=== PATIENT | male | born 2000 | race Caucasian/White ===

== ENCOUNTER 2018-12-23 17:43 | Emergency (ER) | payer OTHER ==
[2018-12-23] MEDS ORDERED: HYDROcodone/APAP 5-325MG 1 EACH TAB PO STA (18:18)
--- NOTE | 2018-12-23 18:30 | XR ---
EXAMINATION TYPE: XR hand complete RT DATE OF EXAM: 12/23/2018 COMPARISON: NONE HISTORY: Pain TECHNIQUE: 3 views FINDINGS: There is a transverse fracture across the base of the first metacarpal. There is slight imp action. There is no dislocation. Fracture displacement is 4 mm. IMPRESSION: Impacted transverse fracture of the base of the first metacarpal.
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
[2018-12-23 20:30] VITALS: BP 126/72; PULSE 84; RESP 18; TEMP 98.4
== END 2018-12-23 20:12 | disposition home or self-care (01) ==
LOC: EC 17:43
DX: S62.231A Other displaced fracture of base of first metacarpal bone, right hand, initial encounter for closed fracture (principal); V99.XXXA Unspecified transport accident, initial encounter
CPT/HCPCS: 29125; 99283

== ENCOUNTER → 2018-12-24 | Outpatient (CLI) | payer SELFPAY | LOC: LABWHC1 16:44 | PROVIDERS: ATTEND Orthopaedic Surgery | DX: S62.211A Bennett's fracture, right hand, initial encounter for closed fracture (principal) | CPT/HCPCS: 36415; 82306 ==

== ENCOUNTER 2018-12-28 06:09 | Day surgery (SDC) | payer SELFPAY ==
[2018-12-24 14:54] VITALS: BMI 25.4
[~2018-12-28 06:09] MED LIST: DEXAMETHASONE SOD PHOSPHATE 10 MG/ML 1 ML VIAL IV ONE; HYDROmorphone 0.5 MG/0.5 ML SYRINGE IVP PRN; LACTATED RINGERS 1,000 ML IV SCH; LIDOCAINE 1% 20 ML VIAL (10MG/ML) FOR IV START INTRADERMA PRN; MIDAZOLAM 2 MG/2 ML VIAL IV PRN; ONDANSETRON 4 MG/2 ML VIAL IVP ONE; SCOPOLAMINE 1.5MG/72HR PATCH TRANSDERM ONE
[2018-12-28 06:36] VITALS: TEMP 98.4
[2018-12-28] MEDS ORDERED: MIDAZOLAM 2 MG/2 ML VIAL IVP ONE (07:05)
[2018-12-28] MEDS ORDERED: fentaNYL (PF) 50 MCG/ML 2 ML AMP IVP ONE (07:05)
[2018-12-28] MEDS ORDERED: MIDAZOLAM 2 MG/2 ML VIAL ONE (07:36)
[2018-12-28] MEDS ORDERED: PROPOFOL 10 MG/ML 20 ML VIAL IV ONE (07:36)
[2018-12-28] MEDS ORDERED: DEXAMETHASONE SOD PHOSPHATE 4 MG/ML 1 ML VIAL ONE (07:36)
[2018-12-28] MEDS ORDERED: ROPIVACAINE 5 MG/ML 30 ML VIAL ONE (07:36)
[2018-12-28] MEDS ORDERED: fentaNYL (PF) 50 MCG/ML 2 ML AMP ONE (07:36)
[2018-12-28 07:41] VITALS: RESP 16
[2018-12-28] MEDS ORDERED: LIDOCAINE 1%-EPI 1:100,000 20 ML VIAL SQ ONE (07:54)
[2018-12-28] MEDS ORDERED: BUPIVACAINE (PF) 0.5% 30 ML VIAL SQ ONE (08:58)
--- NOTE | 2018-12-28 09:06 | P.ANPRN ---
Procedure Note - Anesthesia - Nerve Block Performed Right Supraclavicular Single Time Out Performed: Yes Date of Procedure: 12/28/18 Procedure Start Time: 07:04 Procedure Stop Time: 07:14 Location of Patient Procedure: PreOp Indication: Acute Post-Operative Pain, Requested by Surgeon Sedation Type: Sedate with meaningful contact maintained Preparation: Sterile Prep Position: Sitting Catheter: None Needle Types: Pajunk Needle Gauge: 21 Ultrasound used to visualize needle placement: Yes Ultrasound used to observe medication spread: Yes Injectate: 0.5% Ropivacaine (see comment for volume) (20 cc + decadron 4mg) Blood Aspirated: No Pain Paresthesia on Injection Noted: No Resistance on Injection: Normal Image Stored and Saved: Yes Events: Uneventful and Well Tolerated
[2018-12-28 09:48] VITALS: BP 138/81; PULSE 90
--- NOTE | 2018-12-28 10:01 | FL ---
EXAMINATION TYPE: FL guidance operating room, XR finger RT DATE OF EXAM: 12/28/2018 CLINICAL HISTORY: Fluoroscopic documentation of right thumb fracture surgical fixation. TECHNIQUE: Fluoroscopy. COMPARISON: None. FINDINGS: Fluoroscopic guidance was provided during procedure performed by Dr. Colvin. A total of 1 minute and 6 seconds of fluoroscopic time was utilized during the procedure and 5 spot images wa s acquired during surgical fixation of a right thumb base fracture. Multiple K wires are seen. IMPRESSION: As Above.
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
== END 2018-12-28 10:03 | disposition home or self-care (01) ==
LOC: OR 06:09
PROVIDERS: ATTEND Orthopaedic Surgery
DX: S62.231A Other displaced fracture of base of first metacarpal bone, right hand, initial encounter for closed fracture (principal); W18.30XA Fall on same level, unspecified, initial encounter; F98.8 Other specified behavioral and emotional disorders with onset usually occurring in childhood and adolescence; F84.0 Autistic disorder; Z82.49 Family history of ischemic heart disease and other diseases of the circulatory system; Z79.1 Long term (current) use of non-steroidal anti-inflammatories (NSAID); Z79.899 Other long term (current) drug therapy
CPT/HCPCS: 64415; 76942; 73140; 26650; C1713; J2250; J1100 ×2; J0690; J2405; J3010; J2795; J2704; 64413

== ENCOUNTER 2020-12-31 07:36 | Emergency (ER) | payer OTHER ==
[2020-12-31 07:43] VITALS: RESP 18; TEMP 98.8
[2020-12-31] MEDS ORDERED: DIPH,PERTUS(ACELL)TETVAC-LF 0.5 ML VIAL IM ONE (08:03)
[2020-12-31] MEDS ORDERED: BACITRACIN ZINC 500 UNIT/GM OINT 28.4 GM TUBE TOPICAL STA (08:03)
[2020-12-31] MEDS ORDERED: ACET/COD 300 MG/30 MG STARTER PACK 6 TAB BTL PO STA (08:04)
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
[2020-12-31 09:26] VITALS: BP 143/98; PULSE 80
== END 2020-12-31 09:25 | disposition home or self-care (01) ==
LOC: EC 07:36
DX: T23.202A Burn of second degree of left hand, unspecified site, initial encounter (principal)
CPT/HCPCS: 16000; 90471; 90715; 99283